=== PATIENT | female | born 1955 | race Caucasian/White ===

== ENCOUNTER 2018-04-12 07:20 | Observation (INO) | payer MEDICAID ==
[2018-04-12] MEDS ORDERED: diphenhydrAMINE 25 MG CAP PO ONE (07:21)
[2018-04-12] MEDS ORDERED: ASPIRIN EC 325 MG TAB PO ONE (07:21)
[2018-04-12] MEDS ORDERED: FAMOTIDINE 20 MG TAB PO ONE (07:21)
[2018-04-12] MEDS ORDERED: NS 1,000 ML IV ONE (07:21)
[2018-04-12] MEDS ORDERED: DIAZEPAM 5 MG TAB PO ONE (07:21)
--- NOTE | 2018-04-12 07:45 | CPEKG ---
Heart Rate: 71 RR Interval: 845 P-R Interval: 132 QRSD Interval: 84 QT Interval: 388 QTC Interval: 422 P [place]: 78 QRS [place]: 125 T Wave [place]: 63 EKG Severity - ABNORMAL ECG - EKG Impression: SINUS RHYTHM EKG Impression: LEFT POSTERIOR FASCICULAR BLOCK Electronically Signed By: Harsha Baez 19-Apr-2018 21:57:12
[2018-04-12 08:19] LABS: PLATELET COUNT 355 10^3/uL (150-400)
[2018-04-12 08:27] LABS: INR 1.06 (0.83-1.16)
[2018-04-12] MEDS ORDERED: fentaNYL 100 MCG/2 ML INJ ONE (08:54)
[2018-04-12] MEDS ORDERED: MIDAZOLAM 2 MG/2 ML VIAL ONE (08:54)
[2018-04-12] MEDS ORDERED: LIDOCAINE 1% 300 MG/30 ML SDV ONE (08:54)
[2018-04-12] MEDS ORDERED: IOPAMIDOL (ISOVUE-300) 150 ML BTL ONE (08:55)
--- NOTE | 2018-04-12 09:22 | PDPROPOC ---
Sedation Plan of Care Sedation Plan of Care: vital signs stable, mental status noted, patient educated of risks, benefits, alternatives, patient can tolerate sedation ASA Classification: ASA 2 Planned drugs: fentanyl, midazolam Mallampati Score: Class 2 Mallampati Reference Image: Patient passed 3-3-2 rule?: Yes
--- NOTE | 2018-04-12 09:23 | PDHPUP ---
History & Physical Update H&P update statement: This history and physical update is based on an assessment of the patient which was completed after admission or registration (within 24 hours), but prior to the surgery/procedure. H&P update: H&P reviewed & patient examined, no change in patient's condition since H&P completed
[2018-04-12] MEDS ORDERED: HEPARIN 10,000 UNIT/10 ML MDV (1,000 UNIT/ML) ONE (10:10)
[2018-04-12] MEDS ORDERED: CLOPIDOGREL BISULFATE 75 MG TAB ONE (11:01)
[2018-04-12] MEDS ORDERED: LORazepam 2 MG/ML INJ IVP PRN (11:24)
[2018-04-12] MEDS ORDERED: ONDANSETRON 4 MG/2 ML VIAL IVP PRN (11:24)
[2018-04-12] MEDS ORDERED: TEMAZEPAM 15 MG CAP PO PRN (11:24)
[2018-04-12] MEDS ORDERED: CLOPIDOGREL BISULFATE 75 MG TAB PO ONE (11:24)
[2018-04-12] MEDS ORDERED: ATROPINE SULFATE 1 MG/10 ML SYR IVP PRN (11:24)
[2018-04-12] MEDS ORDERED: NITROGLYCERIN 0.4 MG BTL SL PRN (11:24)
--- NOTE | 2018-04-12 11:44 | CPIP ---
[f rep st] INVASIVE CARDIAC PROCEDURE DATE OF PROCEDURE: 04/12/2018 PROCEDURE: 1. Abdominal aortography. 2. Left lower extremity angiography with catheter placed in the left external iliac artery. 3. Left superficial femoral artery angioplasty and stenting. INDICATION: 1. Rest pain. 2. Nonhealing ulcer of the left 2nd toe. ACCESS: Patient was prepped and draped in sterile fashion. 1% lidocaine was used to anesthetize the right inguinal region. A 6-Maltese introducer sheath was placed selectively in the right common femo ral artery via modified Seldinger technique. The 6-Maltese introducer sheath was later exchanged for a [place] Destination sheath via exchange wire technique. ABDOMINAL AORTOGRAPHY: A 6-Maltese pigtail catheter was placed in the distal abdominal aorta and posi tion verified by angiography. Images were obtained via power injection through the [employer] system. T here was a single left and single right renal artery. The renal arteries appeared free of any signif icant disease. Below the renal arteries, there was a focal 20% stenosis present. The remainder of t he distal abdominal aorta appeared free of any significant disease. The distal abdominal aorta then bifurcated into the left and right common iliac artery. The left common iliac artery had mild lumina l irregularities throughout. There was no stenosis greater than 10%. The left lower extremity angio graphy with catheter placed in the left external iliac artery. A 5-Maltese Sauce Omni catheter was pl aced in the distal abdominal aorta and reformed into its usual position. It was used to selectively engage the left common iliac artery. The left common iliac artery bifurcated into the internal iliac artery and external iliac arteries. The left common iliac artery had mild luminal irregularities th roughout. There was no stenosis greater than 10%. The left internal iliac artery was 100% occluded in the ostial segment. The left external iliac artery had mild luminal irregularities throughout. T here was no stenosis greater than 10%. The left external iliac artery then turned into the left comm on femoral artery. The left common femoral artery appeared free of any significant disease. The SOS Omni catheter was then exchanged for a straight flush catheter. The straight flush catheter was use d to image the remainder of the leg. The left common femoral artery bifurcated in the superficial fe moral artery and profunda femoral artery. The left common femoral artery was free of any significant disease. The left profunda femoral artery was free of any significant disease. The left superficia l femoral artery had mild luminal irregularities throughout. There was no stenosis greater than 10%. In the distal vessel as it transitioned into the popliteal artery, there was 100% occlusion. The p opliteal artery was free of any significant disease. Below the knee, there was 2-vessel runoff with an occluded posterior tibial artery. ANGIOPLASTY AND STENTING OF THE LEFT DISTAL SUPERFICIAL FEMORAL ARTERY: A stiff angled glide wire wa s placed in the popliteal artery and position verified by angiography. A 5.0 x 60 round corner cutter operator balloon wa s used to pre-dilate the lesion. Followup angiography demonstrated significant residual stenosis. A 5.0 x 100 epic stent was then placed across the lesion and deployed. Followup angiography demonstra kalpesh no residual stenosis. No limitation in flow. The patient continued to have 2-vessel runoff foll owing intervention. COMPLICATIONS: None. CONCLUSIONS: 1. Occluded distal left superficial femoral artery. 2. Status post successful angioplasty and stenting of the distal left superficial femoral artery. /[id number]/MODL
--- NOTE | 2018-04-12 12:11 | CPEKG ---
Heart Rate: 78 RR Interval: 769 P-R Interval: 140 QRSD Interval: 84 QT Interval: 388 QTC Interval: 442 P [place]: 82 QRS [place]: 123 T Wave [place]: 54 EKG Severity - ABNORMAL ECG - EKG Impression: SINUS RHYTHM EKG Impression: LEFT ATRIAL ABNORMALITY EKG Impression: LEFT POSTERIOR FASCICULAR BLOCK EKG Impression: CONSIDER LEFT VENTRICULAR HYPERTROPHY Electronically Signed By: Harsha Baez 19-Apr-2018 21:56:51
[2018-04-12] MEDS: GABAPENTIN 300 MG CAP PO SCH (12:29)
[2018-04-12] MEDS: OXYCODONE/APAP 5/325 TAB PO PRN (12:30)
--- NOTE | 2018-04-12 13:15 | ASMTCMCOM ---
CM Note CM Note Notes: Patient admitted for angiogram; she had stenting of the distal L superficial femoral artery. She lives with her daughter and is normally independent. I do not anticipate any Case Management needs, but we are available if any arise. Date Signed: 04/12/2018 01:14 PM Electronically Signed By:Kaye Wang RN
[2018-04-12] MEDS: CARVEDILOL 3.125 MG TAB PO SCH (20:13)
[2018-04-12] MEDS: Exenatide [Byetta] 10 MCG SC SCH (20:15)
[2018-04-12] MEDS ORDERED: GABAPENTIN 300 MG CAP PO SCH (21:00)
[2018-04-12] MEDS: INSULIN GLARGINE 100 UNITS/ML SYRINGE SC SCH (22:51)
[2018-04-13 03:54] LABS: PLATELET COUNT 360 10^3/uL (150-400)
[2018-04-13] MEDS ORDERED: LEVOTHYROXINE 200 MCG TAB PO SCH (06:00)
[2018-04-13] MEDS ORDERED: LEVOTHYROXINE 50 MCG TAB PO SCH (06:00)
[2018-04-13 08:18] VITALS: BP 90/65
[2018-04-13] MEDS: CARVEDILOL 3.125 MG TAB PO SCH (08:48)
[2018-04-13] MEDS: INSULIN GLARGINE 100 UNITS/ML SYRINGE SC SCH (08:48)
[2018-04-13] MEDS: GABAPENTIN 300 MG CAP PO SCH (08:49)
[2018-04-13] MEDS: OXYCODONE/APAP 5/325 TAB PO PRN (08:49)
[2018-04-13] MEDS: Exenatide [Byetta] 10 MCG SC SCH (08:51)
--- NOTE | 2018-04-13 08:54 | CPEKG ---
Heart Rate: 75 RR Interval: 800 P-R Interval: 148 QRSD Interval: 82 QT Interval: 388 QTC Interval: 434 P [place]: 41 QRS [place]: 107 T Wave [place]: 64 EKG Severity - OTHERWISE NORMAL ECG - EKG Impression: SINUS RHYTHM EKG Impression: RIGHT AXIS DEVIATION Electronically Signed By: Harsha Baez 19-Apr-2018 21:56:33
[2018-04-13] MEDS ORDERED: ASPIRIN EC 325 MG TAB PO SCH (09:00)
[2018-04-13] MEDS ORDERED: RIVAROXABAN 15 MG TAB PO SCH (09:00)
[2018-04-13] MEDS ORDERED: CLOPIDOGREL BISULFATE 75 MG TAB PO SCH ×2 (09:00)
--- NOTE | 2018-04-13 12:51 | GDS ---
[f rep st] DISCHARGE SUMMARY DISCHARGE DIAGNOSES: 1. Peripheral vascular disease, status post angioplasty and stenting of the distal left superficial femoral artery. 2. Nonhealing wound of the left foot. 3. Hypertension. 4. Hyperlipidemia. 5. Ongoing tobacco use. 6. History of coronary artery disease. 7. History of pulmonary embolus, currently on Xarelto. HOSPITAL COURSE: For a detailed H and P, please see prior dictation. Briefly, the patient is a 62-y ear-old female with known peripheral vascular disease and osteomyelitis of her left 2nd toe. She has been noted to have slow wound healing despite doxycycline. Ultimately, the decision was made to pro ceed with peripheral angiography plus or minus intervention. This was performed by Dr. Bakari osborne April 12, 2018. She was found to have a totally occluded distal left superficial femoral artery. Sh e is status post successful angioplasty and stenting with a 5.0 x 100 epic stent with good results. The following morning, she had good distal pulses. Her groin where access was obtained for the proce dure was clean and intact without any evidence of infection or hematoma. She was monitored on teleme try and remained in normal sinus rhythm. DISCHARGE MEDICATIONS: Aspirin 81 mg daily has been added to her medical regimen. Remaining of her medications are unchanged. She will continue Synthroid 200 mcg daily, Levemir 25 units subcu b.i.d., Coreg 3.125 mg b.i.d., Byetta 10 mcg subcu b.i.d., Synthroid 50 mcg daily, Ultram 50 mg b.i.d. p.r.n ., oxycodone p.r.n., Xarelto 15 mg daily, Plavix 75 mg daily, metformin XR 500 mg b.i.d., Neurontin 3 00 mg 4 tablets at bedtime, 2 tablets b.i.d. PLAN: The patient is currently stable and ready for discharge home. She has been given groin precau tions. She will follow up with her pilot plant technician in 1 week. She is also scheduled to follow up with Dr Channing Hernandez on April 27, at 11:30 at our [place] office. She is currently on Xarelto, Plavix, and aspirin. She can discontinue aspirin in 1 month. /[id number]/MODL
--- NOTE | 2018-04-13 15:46 | ASDISCHSUM ---
Discharge Information Plan Status:Home with No Needs Medically Cleared to Leave:04/13/2018 Discharge Date:04/13/2018 11:43 AM CM D/C Disposition:Home, Routine, Self-Care ADT D/C Disposition:Home, Routine, Self-Care Projected Discharge Date:04/13/2018 11:43 AM Transportation at D/C: Discharge Delay Reason: Follow-Up Date:04/13/2018 11:43 AM Discharge Slot: Final Diagnosis: Placement Information Patient Contact Information Contact Name:DIETER Relationship:Daughter Address:[address] Work Phone: City:[place] Alternate Phone: [facility]/Zip Code:[place] [address] Email: Financial Information Financial Class:Medicaid 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 She lives with her daughter and is normally independent. I do not anticipate any Case Management needs, but we are available if any arise. Date Signed: 04/12/2018 01:14 PM Electronically Signed By:Kaye Wang RN LACE LACTesfaye Length of stay for Answers: 1 day current admission Acuity / Level of Answers: No Care: Did the patient have an inpatient admission? Comorbidities - select Answers: Other Notes: occluded distal left all that apply superficial femoral artery # of Emergency department Answers: 1-2 visits in the last 6 months Score: 3 Date Signed: 04/13/2018 03:45 PM Electronically Signed By:Wendy Coulter RN Intervention Information
== END 2018-04-13 11:43 | disposition home or self-care (01) ==
LOC: FCATH 07:20 → F2W 11:29
PROVIDERS: ADMIT Internal Medicine Cardiovascular Disease; ATTEND Internal Medicine Cardiovascular Disease
PROC: B41G1ZZ Fluoroscopy of Left Lower Extremity Arteries using Low Osmolar Contrast (ICD-10-PCS; principal; 2018-04-12)
PROC: B4101ZZ Fluoroscopy of Abdominal Aorta using Low Osmolar Contrast (ICD-10-PCS; principal; 2018-04-12)
PROC: 047L3D1 Dilation of Left Femoral Artery with Intraluminal Device, using Drug-Coated Balloon, Percutaneous Approach (ICD-10-PCS; principal; 2018-04-12)
DX: I70.245 Atherosclerosis of native arteries of left leg with ulceration of other part of foot (principal); I70.222 Atherosclerosis of native arteries of extremities with rest pain, left leg; L97.529 Non-pressure chronic ulcer of other part of left foot with unspecified severity; I10 Essential (primary) hypertension; M86.9 Osteomyelitis, unspecified; E78.5 Hyperlipidemia, unspecified; F17.210 Nicotine dependence, cigarettes, uncomplicated; I25.10 Atherosclerotic heart disease of native coronary artery without angina pectoris; Z86.711 Personal history of pulmonary embolism; Z79.01 Long term (current) use of anticoagulants
CPT/HCPCS: 37226; 75625; 75710; 93005; C1725; C1769; C1760; C1876; J1644; J1815; J2250; J3010; Q9967

== ENCOUNTER 2019-04-01 05:43 | Observation (INO) | payer MEDICAID | END 2019-04-02 10:08 | disposition home or self-care (01) | LOC: FSGY 05:43 → F3E 09:54 ==